=== PATIENT | male | born 2000 | race Caucasian/White ===

== ENCOUNTER 2022-04-23 11:16 | Outpatient (CLI) | payer OTHER, SELFPAY ==
[2022-04-23 16:19] LABS: Albumin* 4.4 g/dL (3.3-5.0); Chloride* 104 mmol/L (96-114); Sodium* 142 mmol/L (135-149)
[2022-04-23 16:22] LABS: Alkaline Phosphatase* 65 U/L (40-150); Aspartate Amino Transferase* 19 U/L (12-35); Bilirubin Total* 1.1 mg/dL (0.1-1.5); Blood Urea Nitrogen* 10 mg/dL (5-24); Calcium* 9.4 mg/dL (8.4-10.6); Carbon Dioxide* 31 mmol/L (20-32); Creatinine* 0.7 mg/dL (0.5-1.5); Estimated Glomerular Filt Rate 134 ml/min; Glucose* 84 mg/dL (60-115); Total Protein* 6.6 g/dL (6.0-8.3)
[2022-04-23 16:23] LABS: Alanine Aminotransferase* 18 U/L (4-50); Magnesium* 2.2 mg/dL (1.5-2.6)
== END 2022-04-23 11:17 | disposition home or self-care (01) ==
PROVIDERS: PCP Family Medicine; Visit Provider Family Medicine
DX: F33.2 Major depressive disorder, recurrent severe without psychotic features (principal); F41.0 Panic disorder [episodic paroxysmal anxiety]; F41.1 Generalized anxiety disorder; R44.0 Auditory hallucinations; R53.83 Other fatigue; I10 Essential (primary) hypertension
CPT/HCPCS: 80053; 83735; 84443